=== PATIENT | male | born 1950 | race Caucasian/White ===

== ENCOUNTER 2018-11-20 13:20 | Emergency (ER) | payer MEDICARE, OTHER, SELFPAY ==
[2018-11-20 13:27] VITALS: BP 142/77; PULSE 77; RESP 14; TEMP 36.6; O2SAT 98; BMI 26.6
--- NOTE | 2018-11-20 13:46 | ED_ITS ---
HPI - Skin/Abscess/Foreign Bdy <DIGNA Larsen - Last Filed: 11/20/18 21:47> General Chief complaint: Skin/Abscess/Foreign Body Stated complaint: Something bit him on left forearm, swelling Time Seen by Provider: 11/20/18 13:28 Source: patient Mode of arrival: ambulatory Limitations: no limitations History of Present Illness HPI narrative: 68-year-old male presents emergency department today complaining of a insect sting on his anterior left arm yesterday around 2. He states he was working in the yard when he felt something bite or sting him. Patient reported that immediately there was surrounding erythema that increased in size covering most of his forearm this remains the same today and has not increased or decreased. He woke this morning and noticed the swelling had not decreased at all and he was concerned that he may have had a allergic reaction. Patient denies any history of allergies to insects. He denies throat swelling, tongue swelling, pruritus, pruritic throat, eye irritation, stinging eyes shortness of breath, chest pain, dizziness, syncope, abdominal pain, vomiting, nausea, diarrhea, fevers, or chills. Related Data Allergies Allergy/AdvReac Type Severity Reaction Status Date / Time No Known Drug Allergies Allergy Verified 11/20/18 13:27 Review of Systems <DIGNA Larsen - Last Filed: 11/20/18 21:47> Review of Systems Narrative: REVIEW OF SYSTEMS: GENERAL: Denies fever or chills. HENT: Denies head trauma. EYE: Denies double vision or vision loss. CARDIOVASCULAR: Denies syncope. MUSCULOSKELETAL: Denies weakness, or deformities. INTEGUMENTARY: Complains of left arm swelling, see HPI. NEURO: Denies numbness or tingling. PFSH <DIGNA Larsen - Last Filed: 11/20/18 21:47> Medical History Hyperlipidemia (Acute) Social History Smoking Status: Unknown if ever smoked Social History Smoking Status: Unknown if ever smoked Exam <DIGNA Larsen - Last Filed: 11/20/18 21:47> Initial Vital Signs Initial Vital Signs: Vital Signs Temperature 97.8 F 11/20/18 13:27 Pulse Rate 77 11/20/18 13:27 Respiratory Rate 14 11/20/18 13:27 Blood Pressure 142/77 H 11/20/18 13:27 Pulse Oximetry 98 11/20/18 13:27 PHYSICAL EXAMINATION: GENERAL: Well groomed, alert, and cooperative. Answers questions promptly and appropriately. Vital signs noted. HENT: Normocephalic, atraumatic. RESPIRATORY: Normal respiratory rate, trachea midline, airway patent. No stridor, nasal flaring or accessory muscle use. Lung sounds clear in all fi elds. MUSCULOSKELETAL: Normal gait and coordination. Equal tone and mass bilaterally. EXTREMITIES: CMS intact. Moves all extremities. SKIN: Warm, dry, soft, appropriate color for ethnicity. 18 cm x 8 cm indurated area of inflammation noted, pink in color slightly increased warmth. A small 1 cm in diameter discoloration in the center appears to be a insert sting or bite without the remainder of a foreign body or stinger. Patient has full range of motion of all joints. No ecchymosis or lip lacerations. NEURO: Alert and Oriented X 3. Good coordination. PSYCH: Appropriate affect and mood. <Gay Cruz MD - Last Filed: 11/21/18 07:11> Initial Vital Signs Initial Vital Signs: Vital Signs Temperature 97.8 F 11/20/18 13:27 Pulse Rate 77 11/20/18 13:27 Respiratory Rate 14 11/20/18 13:27 Blood Pressure 142/77 H 11/20/18 13:27 Pulse Oximetry 98 11/20/18 13:27 Course <DIGNA Larsen - Last Filed: 11/20/18 21:47> Course Course Narrative: Dr. Cruz also evaluated the patient as well and agreed with my assessment. Edges of the induration were marked with a skin marker. Orders Ordered: Discontinued Medications Diphtheria/Tetanus/Acell Pertussis (Adacel) 0.5 ml IM .ONCE ONE Stop: 11/20/18 13:55 Last Admin: 11/20/18 14:01 Dose: 0.5 ml Documented by: LORNA Consultations Consultation #1: Patient staffed with Dr. Cruz. Vital Signs Vital signs: Vital Signs - 8 hr 11/20/18 13:27 Temperature 97.8 F Pulse Rate 77 Respiratory Rate 14 Blood Pressure 142/77 H Pulse Oximetry 98 <Gay Cruz MD - Last Filed: 11/21/18 07:11> Orders Ordered: Discontinued Medications Diphtheria/Tetanus/Acell Pertussis (Adacel) 0.5 ml IM .ONCE ONE Stop: 11/20/18 13:55 Last Admin: 11/20/18 14:01 Dose: 0.5 ml Documented by: LORNA Vital Signs Vital signs: Vital Signs - 8 hr 11/20/18 13:27 Temperature 97.8 F Pulse Rate 77 Respiratory Rate 14 Blood Pressure 142/77 H Pulse Oximetry 98 MDM - Skin/Abscess/Foreign Bdy <DIGNA Larsen - Last Filed: 11/20/18 21:47> Medical Records Attestation: I reviewed the patient's medical records. Lab Data Attestation: I reviewed the patient's lab results. [facility] Narrative Medical decision making narrative: Differential includes histamine reaction (most likely as swelling occurred almost immediately after sting, the redness and swelling have not spread or decreased over the past 24 hours, patient denies any systemic symptoms for infection such as fevers or tachycardia, patient reports a bite or sting while working outside), cellulitis (less likely due to lack of systemic symptoms and the fact that indurated swelling occurred immed iately, skin appears more pink in color rather than red that I would expect in cellulitis). Very strict return precautions given and follow-up instructions discussed. Discharge Plan Departure Patient Disposition: Home Clinical Impression: Insect sting Qualifiers: Encounter type: initial encounter Injury intent: accidental or unintentional Qualified Code(s): T63.481A - Toxic effect of venom of other arthropod, accid ental (unintentional), initial encounter Discharge Date/Time: 11/20/18 15:35 Instructions: DI for Cellulitis -- Adult, DI for Insect Bites and Stings Activity Restrictions/Additional Instructions: Thank you for entrusting me with your care today. As discussed, it appears you have had a localized reaction to a bee sting. You may apply hydrocortisone 1% cream to the area 1-3 times a day. You can also take claritin (also known as loratadine) 10mg daily for the next 3 days. Please monitor the area for signs of infection such as increased redness, fevers, chills, pus, increased swelling, and increased --these symptoms occur please return to the walk-in clinic or emergency department immediately. Please follow up with your primary care provider in the next week for re-evaluation.
[2018-11-20] MEDS: TET,DIPH,PERTUSS(ACELL),VAC/PF 0.5 ML SYRINGE IM (14:01)
== END 2018-11-20 15:35 | disposition home or self-care (01) ==
PROVIDERS: Emergency Provider Nurse Practitioner; PCP Family Medicine
DX: T63.481A Toxic effect of venom of other arthropod, accidental (unintentional), initial encounter (principal)
CPT/HCPCS: 90471; 99282; 99283; 90715

== ENCOUNTER → 2020-05-19 15:02 | Outpatient (CLI) | payer MEDICARE, OTHER, SELFPAY ==
[2020-05-19] MEDS: COVID-19 VACC, Ad26(JANSSEN)/PF 0.5 ML IM (15:12)
== END ==
PROVIDERS: PCP Family Medicine; Visit Provider Internal Medicine
DX: Z23 Encounter for immunization (principal)
CPT/HCPCS: 0031A; 91303

== ENCOUNTER → 2024-08-08 09:16 | Outpatient (CLI) | payer OTHER, SELFPAY ==
--- NOTE | 2024-08-08 09:20 | DI.RAD.S_ITS ---
PROCEDURE: XR FOOT RT MIN 3V INDICATIONS: R FOOT ARTHRITIS TECHNIQUE: 3 views of the foot were acquired. COMPARISON: [facility] [place], [place], XR FOOT 3 VIEWS WEIGHT BEARING RIGHT, 03/08/2022, 8:47. FINDINGS: Bones: No fractures or dislocations. No suspicious bony lesions. Joints well maintained for age. No erosions. Soft tissues: No tibiotalar joint effusion. Achilles tendon appears normal. IMPRESSION: No definite radiographic abnormality. If pain persists with conservative management, consider repeat plain films or cross sectional imaging such as CT or MRI for further assessment. Dictated by: Pascual Dobson [facility] Interpreted: Deanne Pino MD on 08/09/2024 at 12:30 Transcribed by: DUSTIN on 08/09/2024 at 12:30 Approved by: Deanne Pino M.D. on 08/11/2024 at 7:43
== END ==
PROVIDERS: PCP Family Medicine; Referring Provider Chiropractor; Visit Provider Chiropractor
DX: M19.071 Primary osteoarthritis, right ankle and foot (principal)
CPT/HCPCS: 73630